=== PATIENT | male | born 1945 | race Caucasian/White ===

== ENCOUNTER 2020-04-24 15:55 | Emergency (ER) | payer MEDICARE ==
[~2020-04-24] VITALS: Ht 172.7 cm; Wt 76.6 kg
[2020-04-24 16:44] LABS: BASOPHILS % (AUTO) 1 % (0-1); EOSINOPHILS % (AUTO) 2 % (1-7); LYMPHOCYTES % (AUTO) 30 % (22-44); MEAN CORPUSCULAR HEMOGLOBIN 35.4 pg (27.5-34.5); MEAN CORPUSCULAR HGB CONC 35.4 g/dL (33.2-36.2); MEAN PLATELET VOLUME 6.1 fL (7.4-10.4); MONOCYTES % (AUTO) 7 % (2-9); NEUTROPHILS % (AUTO) 61 % (42-75); PLATELET COUNT 312 x10^3/uL (130-400); RED BLOOD COUNT 4.08 x10^6/uL (4.38-5.82); RED CELL DISTRIBUTION WIDTH 12.4 % (9.4-14.8)
[2020-04-24 16:48] LABS: MD NO
[2020-04-24 16:51] LABS: ALBUMIN 4.2 g/dL (3.4-5.0); ANION GAP 6 mmol/L (5-15); CALCIUM 9.4 mg/dL (8.5-10.1); CHLORIDE 101 mmol/L (98-107)
[2020-04-24 16:56] LABS: ALANINE AMINOTRANSFERASE 27 U/L (12-78); ALKALINE PHOSPHATASE 49 U/L (45-117); BILIRUBIN,TOTAL 0.9 mg/dL (0.2-1.0); TOTAL PROTEIN 7.2 g/dL (6.4-8.2); TROPONIN I < 0.015 ng/mL (0.000-0.045)
--- NOTE | 2020-04-24 17:48 | NUR ---
PCXR WAS DC'D PER RAD. CHEST XRAY REORDERED.
[2020-04-24 18:03] VITALS: BP 129/71
[2020-04-24 19:44] LABS: TROPONIN I < 0.015 ng/mL (0.000-0.045)
== END 2020-04-24 20:28 | disposition home or self-care (01) ==
LOC: ED 19:41
DX: R07.89 Other chest pain (principal); I25.10 Atherosclerotic heart disease of native coronary artery without angina pectoris; E11.9 Type 2 diabetes mellitus without complications; Z90.89 Acquired absence of other organs; Z87.891 Personal history of nicotine dependence; Z95.1 Presence of aortocoronary bypass graft; X58.XXXA Exposure to other specified factors, initial encounter; Y93.89 Activity, other specified; Y92.89 Other specified places as the place of occurrence of the external cause; Y99.8 Other external cause status
CPT/HCPCS: 36415; 71045; 80053; 84484; 85025; 93005; 99285

== ENCOUNTER 2020-05-04 09:55 | Day surgery (SDC) | payer MEDICARE ==
[~2020-05-04] VITALS: Ht 172.7 cm; Wt 73.2 kg
[2020-05-04] MEDS ORDERED: PLEASE ENTER HEIGHT AND WEIGHT MC SCH (10:30)
[2020-05-04] MEDS ORDERED: SODIUM CHLORIDE 0.9% 1,000 ML IV SCH ×3 (10:30→15:00)
[2020-05-04] MEDS ORDERED: VITA100C10 PO (10:35)
[2020-05-04] MEDS ORDERED: ZINC220T2 PF (10:35)
[2020-05-04] MEDS ORDERED: ATOR20TA37 PO (10:35)
[2020-05-04] MEDS ORDERED: ASPI81TA45 PO (10:35)
[2020-05-04] MEDS ORDERED: CHOL10003 PO (10:35)
[2020-05-04] MEDS ORDERED: ENAL10TA9 PO (10:35)
[2020-05-04] MEDS ORDERED: MULT-257 PO (10:35)
[2020-05-04] MEDS ORDERED: NIAC-27 PO (10:35)
[2020-05-04] MEDS ORDERED: CYAN100072 PO (10:35)
[2020-05-04] MEDS ORDERED: METF500T17 PO (10:35)
[2020-05-04] MEDS ORDERED: UBID100C24 PO (10:35)
[2020-05-04] MEDS ORDERED: TAMS-11 PO (10:35)
[2020-05-04] MEDS ORDERED: VERAPAMIL 2.5 MG/ML, 2ML ONE (10:55)
[2020-05-04] MEDS ORDERED: TICAGRELOR 90 MG TABLET ONE ×2 (10:55→12:08)
[2020-05-04] MEDS ORDERED: FENTANYL PF 100 MCG/2ML ONE ×2 (10:55→12:08)
[2020-05-04] MEDS ORDERED: MIDAZOLAM 1 MG/ML, 5ML ONE ×2 (10:55→12:08)
[2020-05-04] MEDS ORDERED: LIDOCAINE-MPF 1%, 5ML ONE ×2 (10:56→12:09)
[2020-05-04] MEDS ORDERED: HEPARIN 1,000 UNITS/ML, 10ML ONE ×3 (10:56→12:42)
[2020-05-04] MEDS ORDERED: BIVALIRUDIN 250 MG ONE ×2 (10:56→12:09)
[2020-05-04] MEDS ORDERED: LIDOCAINE 2%, 20ML ONE (10:59)
[2020-05-04 11:01] VITALS: BP 147/83
[2020-05-04 11:25] LABS: ANION GAP 4 mmol/L (5-15); CALCIUM 8.5 mg/dL (8.5-10.1); CHLORIDE 109 mmol/L (98-107); CREATININE 0.71 mg/dL (0.7-1.3)
[2020-05-04] MEDS ORDERED: LIDOCAINE 1%, 20ML ONE (11:57)
== END 2020-05-04 17:17 | disposition home or self-care (01) ==
LOC: CACL 09:55
PROVIDERS: ATTEND Internal Medicine Cardiovascular Disease
DX: R07.89 Other chest pain (principal); I25.119 Atherosclerotic heart disease of native coronary artery with unspecified angina pectoris; I25.82 Chronic total occlusion of coronary artery; I10 Essential (primary) hypertension; E78.5 Hyperlipidemia, unspecified; Z79.82 Long term (current) use of aspirin; Z79.84 Long term (current) use of oral hypoglycemic drugs; Z79.899 Other long term (current) drug therapy; Z87.891 Personal history of nicotine dependence
CPT/HCPCS: 36415; 80048; 93459; 99156; C1760; C1769; C1894; J1644; J2250; J3010; Q9967; J0583